=== PATIENT | female | born 1960 | race Caucasian/White ===

== ENCOUNTER → 2017-05-10 15:45 | Outpatient (POV) | payer BC, SELFPAY | PROVIDERS: PCP Internal Medicine Adolescent Medicine; Visit Provider Internal Medicine Adolescent Medicine | DX: Z00.00 Encounter for general adult medical examination without abnormal findings (principal) ==

== ENCOUNTER → 2017-05-24 15:29 | Outpatient (POV) | payer BC, SELFPAY | PROVIDERS: PCP Internal Medicine Adolescent Medicine; Visit Provider Internal Medicine Adolescent Medicine | DX: Z00.00 Encounter for general adult medical examination without abnormal findings (principal) ==

== ENCOUNTER → 2017-07-05 16:42 | Outpatient (POV) | payer BC, SELFPAY | PROVIDERS: PCP Internal Medicine Adolescent Medicine | DX: Z00.00 Encounter for general adult medical examination without abnormal findings (principal) ==

== ENCOUNTER → 2017-11-22 16:13 | Outpatient (CLI) | payer BC, SELFPAY ==
--- NOTE | 2017-11-22 16:43 | XR_ITS ---
XR chest 2V HISTORY: Hypertension ITS.REASON: PRE-OP ORDERING PHYSICIAN: Alistair Landis MD PATIENT AGE: 57 years COMPARISON: None FINDINGS: The cardiomediastinal silhouette and pulmonary vascularity are within normal limits. The lungs are clear without infiltrates, suspicious nodules, or pleural effusions. No acute bony abnormalities. There is mild lower thoracic curvature convex left IMPRESSION: No acute finding
[2017-11-22 16:46] LABS: Basophils % 0.1 % (0.1-2.0); Eosinophils # 0.1 K/mm3 (0.0-0.4); Hematocrit 37.5 % (37.0-47.0); Lymphocytes # 1.3 K/mm3 (0.7-4.5); Lymphocytes % 27.2 K/mm3 (10-50); Mean Corpuscular HGB Conc 32.1 g/dL (31.8-35.4); Mean Corpuscular Hemoglobin 30.5 pg (27.0-31.2); Mean Corpuscular Volume 95.1 fl (81-99); Mean Platelet Volume 8.3 fl (7.4-10.4); Monocytes # 0.2 K/mm3 (0.1-1.0); Monocytes % 4.8 % (1.7-9.3); Neutrophils # 3.2 K/mm3 (1.8-7.8); Neutrophils % 66.8 % (37.0-80.0); Platelet Count 268 K/mm3 (142-424); Red Blood Count 3.94 M/mm3 (4.20-5.40); Red Cell Distribution Width 13.2 % (11.5-17.5); White Blood Count 4.7 K/mm3 (4.8-10.8)
[2017-11-22 19:59] LABS: Anion Gap 7.8 mEq/L (5-15); Blood Urea Nitrogen 8 mg/dL (7-18); Calcium 8.9 mg/dL (8.5-10.1); Carbon Dioxide 28 mmol/L (21.0-32.0); Chloride 105 mmol/L (98-107); Creatinine,Serum 0.71 mg/dL (0.55-1.02); Estimated Glomerular Filt Rate 85 ml/min (>60); GFR (African American) 103 ML/MIN (>60); Glucose 84 mg/dL (74-106); Potassium 3.8 mmoL/L (3.5-5.1); Sodium 137 mmol/L (136-145)
== END ==
PROVIDERS: PCP Internal Medicine Adolescent Medicine; Visit Provider Orthopaedic Surgery
DX: Z01.818 Encounter for other preprocedural examination (principal)
CPT/HCPCS: 36415; 71046; 80048; 85025; 93005

== ENCOUNTER → 2017-12-04 15:22 | Outpatient (CLI) | payer BC, SELFPAY ==
--- NOTE | 2017-12-04 15:24 | XR_ITS ---
XR wrist LT min 3V HISTORY follow-up ORIF/fracture ITS.REASON: sp orif lt wrist/ xrays in cast ORDERING PHYSICIAN: Alistair Landis MD PATIENT AGE: 57 years Comparison:11/24/2017 FINDINGS: The study is obtained through a cast. There is an anterior bone plate once again noted with multiple screws stabilizing a distal radial fracture which is in good alignment. Fracture lines are no well delineated due to overlying cast. IMPRESSION: Good alignment distal radial fracture status post ORIF
== END ==
PROVIDERS: PCP Internal Medicine Adolescent Medicine; Visit Provider Orthopaedic Surgery
DX: S52.502A Unspecified fracture of the lower end of left radius, initial encounter for closed fracture (principal); Z48.89 Encounter for other specified surgical aftercare
CPT/HCPCS: 73110

== ENCOUNTER → 2017-12-19 15:04 | Outpatient (CLI) | payer BC, SELFPAY ==
--- NOTE | 2017-12-19 15:07 | XR_ITS ---
XR wrist LT min 3V HISTORY follow-up fracture/ORIF ITS.REASON: left wrist/ after cast was removed ORDERING PHYSICIAN: Alistair Landis MD PATIENT AGE: 57 years Comparison: 12/04/2017 FINDINGS: There is good alignment with the anterior bone plate present overlying the distal radius stabilizing the healing fracture of the distal radius. IMPRESSION: Healing fracture distal radius with good alignment status post ORIF
== END ==
PROVIDERS: PCP Internal Medicine Adolescent Medicine; Visit Provider Orthopaedic Surgery
DX: S52.502A Unspecified fracture of the lower end of left radius, initial encounter for closed fracture (principal)
CPT/HCPCS: 73110

== ENCOUNTER → 2018-01-12 12:02 | Outpatient (CLI) | payer BC, SELFPAY ==
--- NOTE | 2018-01-12 12:05 | XR_ITS ---
XR wrist LT min 3V HISTORY follow-up fracture/ORIF ITS.REASON: SP ORIF left wrist ORDERING PHYSICIAN: Alistair Landis MD PATIENT AGE: 57 years Comparison: 12/19/2017 FINDINGS: There remains good alignment in the distal radial fracture with bone plate placed anteriorly fracture line still visible involving the distal radius IMPRESSION: Overall no change. Alignment status post ORIF distal radial fracture
== END ==
PROVIDERS: PCP Internal Medicine Adolescent Medicine; Visit Provider Orthopaedic Surgery
DX: S52.502A Unspecified fracture of the lower end of left radius, initial encounter for closed fracture (principal); Z09 Encounter for follow-up examination after completed treatment for conditions other than malignant neoplasm
CPT/HCPCS: 73110

== ENCOUNTER 2018-02-22 14:00 | Outpatient (RCR) | payer BC, SELFPAY ==
--- NOTE | 2017-12-27 15:51 | HMH.OTOPEV ---
OT Inpatient Evaluation Rehab OT Outpatient Eval Start: 12/27/17 15:37 Freq: Status: Active Protocol: Document 12/27/17 15:38 RMARSHALL (Rec: 12/27/17 15:51 [facility] [id number]) Electronically Signed By Mima Sneed OT 12/27/17 15:38 Outpatient Therapy Subjective History Subjective History Pt reports to therapy session for initial evaluation to left wrist. Pt reports she fell out of her truck on 11/20/17 and caught herself with her left hand. Pt's fall resulted in a distal radius fracture at left wrist and an ORIF on . Pt is currently wearing a pre-twin removable wrist cock up on left hand with a sling. 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 Pt is able to make a full fist with left hand and oppose each finger to thumb. Pt will continue to be seen in order to address all deficits. Chief Complaint Pain Stiff Swelling Weakness Decreased General Counselor Strength Symptom Type Ache Sharp Symptoms Relieved By Rest/Positioning Symptoms Aggravated By Physical Activity Lifting Prior Functional Limitations None Current Functional Limitations Lifting Housework Dressing Symptom Description Intermittent Activity Dependent Level of pain today (0-10) 0 Pain scale - at its best (0-10) 0 Pain scale - at its worst (0-10) 3 Wrist/Hand Eval Wrist Range of Motion Wrist Limitations of Range of Motion Soft Tissue Tightness Muscle Weakness Pain Wrist Extension Active Range of Motion ( 22 degrees degrees) Wrist Flexion Active Range of Motion ( 20 degrees degrees) Wrist Radial Deviation Active Range of 28 degrees Motion (degrees) Wrist Ulnar Deviation Active Range of 20 degrees Motion (degrees)
== END 2018-02-22 14:05 | disposition home or self-care (01) ==
LOC: OT 14:00
PROVIDERS: Visit Provider Orthopaedic Surgery
DX: S52.572A Other intraarticular fracture of lower end of left radius, initial encounter for closed fracture (principal)
CPT/HCPCS: 97014; 97035; 97110; 97140; 97165; G0283

== ENCOUNTER → 2018-02-23 10:08 | Outpatient (CLI) | payer BC, SELFPAY ==
--- NOTE | 2018-02-23 10:10 | XR_ITS ---
XR wrist LT min 3V HISTORY: Follow-up fracture ITS.REASON: sp ORIF lt wrist DOS 11/24/17 ORDERING PHYSICIAN: Alistair Landis MD PATIENT AGE: 57 years COMPARISON: Left wrist 01/12/2018 FINDINGS: The metallic bone plate is again seen along the volar surface of the distal radius transfixing the distal radial fracture in anatomic alignment and fixated by multiple threaded screws. The fracture line is somewhat blurred on today's study representing progressive interval healing from the previous study. The distal ulna is intact.. The carpal bones appear normal to monitor posterior 3 change at the first carpometacarpal joint. IMPRESSION: Post-ORIF fracture distal radius with slight interval healing from the previous study
== END ==
PROVIDERS: PCP Internal Medicine Adolescent Medicine; Visit Provider Orthopaedic Surgery
DX: Z09 Encounter for follow-up examination after completed treatment for conditions other than malignant neoplasm (principal); S52.502A Unspecified fracture of the lower end of left radius, initial encounter for closed fracture
CPT/HCPCS: 73110

== ENCOUNTER → 2018-03-02 15:33 | Outpatient (CLI) | payer BC, SELFPAY ==
--- NOTE | 2018-03-02 15:38 | XR_ITS ---
XR DEXA axial skeleton HISTORY: ITS.REASON: osteoporosis ORDERING PHYSICIAN: Alistair Landis MD PATIENT AGE: 57 years COMPARISON: None FINDINGS: The BMD measured at the left femoral neck is 0.844 g/cm squared with a T score of -1.4. This is considered Osteopenic according to the World Health Organization criteria. Fracture risk is Moderate. Treatment is advised. Bone density lumbar spine has a T score -0.6 IMPRESSION: Osteopenia with moderate fracture risk. Treatment is advised Suggest follow-up exam February 2020
== END ==
PROVIDERS: PCP Internal Medicine Adolescent Medicine; Visit Provider Orthopaedic Surgery
DX: M81.0 Age-related osteoporosis without current pathological fracture (principal)
CPT/HCPCS: 77080

== ENCOUNTER → 2020-09-23 12:09 | Outpatient (CLI) | payer BC, SELFPAY ==
--- NOTE | 2020-09-23 12:14 | XR_ITS ---
PROCEDURE: XR ANKLE RT MIN 3V CLINICAL INDICATION: ACUTE RT ANKLE PAIN COMPARISON: No exams were available for comparison FINDINGS: No fracture or dislocation. No lytic or blastic change. There is normal mineralization. The joint spaces are well-preserved. No significant degenerative/arthritic changes. No erosive changes evident. Other findings:Small bone island noted in the calcaneus anteriorly versus overlying ossicle IMPRESSION: No acute findings. Dictated by: Yousif Pickett MD 09/23/2020 12:52 Yousif Pickett MD in [place] 09/23/2020 12:52
== END ==
PROVIDERS: PCP Internal Medicine Adolescent Medicine; Visit Provider Internal Medicine Adolescent Medicine
DX: M25.571 Pain in right ankle and joints of right foot (principal)
CPT/HCPCS: 73610

== ENCOUNTER → 2021-11-15 16:10 | Outpatient (CLI) | payer OTHER, SELFPAY ==
--- NOTE | 2021-11-15 16:14 | XR_ITS ---
PROCEDURE INFORMATION: Exam: XR Left Knee Exam date and time: 11/15/2021 4:19 PM Age: 61 years old Clinical indication: Pain; Knee; Left; Additional info: Acute pain of left knee TECHNIQUE: Imaging protocol: Radiologic exam of the Left knee. Views: 3 views. COMPARISON: No relevant prior studies available. FINDINGS: Bones/joints: No acute fracture or malalignment. Moderate medial and mild lateral and patellofemoral compartment degenerative changes. No joint effusion. Patellar enthesopathy. Osteopenia. Soft tissues: Normal. IMPRESSION: 1. No acute fracture or malalignment. 2. Moderate medial compartment degenerative changes.
== END ==
PROVIDERS: PCP Internal Medicine Adolescent Medicine; Visit Provider Internal Medicine Adolescent Medicine
DX: M25.562 Pain in left knee (principal)
CPT/HCPCS: 73562

== ENCOUNTER 2021-12-21 16:30 | Outpatient (RCR) | payer OTHER, SELFPAY ==
--- NOTE | 2021-11-18 17:57 | HMH.PTOPEV ---
PT Outpatient Evaluation Rehab PT Outpatient Evaluation Start: 11/18/21 17:45 Freq: Status: Active Protocol: Document 11/18/21 17:45 SANTHOSH (Rec: 11/18/21 17:57 SANTHOSH [id number]) E-signed By Chriss Longo, PT Outpatient Therapy Subjective History Subjective History Patient is a 61 year old female presenting to outpatient PT with reports of L knee pain 10/07/21. Initial injury occurred aftera a slip and fall at work. This is a WC case. Injury occurred during the fall with the L knee in CKC and bending/ twisting motion. S&S consistent with medial meniscus tear. Comorbidities include hx of L wrist fracture . Chief Complaint Pain,Stiff,Swelling,Weakness Symptom Type Ache,Throb,Sharp,Dull Symptoms Relieved By Rest/Positioning,OTC Meds Symptoms Aggravated By Standing,Physical Activity, Walking Prior Functional Limitations None Current Functional Limitations Housework,Standing,Recreation Activity,Walking,Stairs Symptom Description Constant but Variable Level of pain today (0-10) 5 Pain scale - at its best (0-10) 2 Pain scale - at its worst (0-10) 7 Hip/Knee Eval Gait Observation General Gait Pattern Observation Antalgic Gait,Decrease Weight Bear (L) Assistive Device Assistive Devices None / NA Palpation Tenderness left Knee Palpation Finding Tenderness Knee Palpation Overall Comment medial joint line 3/4 MMT Hip Flexion Strength Grade 5 Normal Hip Abduction Strength Grade 5 Normal Hip Adduction Strength Grade 5 Normal Hip Extension Strength Grade 4 Good Hip External Rotation Strength Grade 4- Good- Hip Internal Rotation Strength Grade 4- Good- Knee Extension Strength Grade 4 Good Knee Flexion Strength Grade 5 Normal ROM Hip ROM Reason Not Measured Within Functional Limits Knee ROM Reason Not Measured Within Functional Limits Special Tests Knee Anterior Drawer Test Negative Left Knee Anterior Alli Test Negative Left Knee Valgus Stress Test Negative Left Knee Varus Stress Test Negative Left Knee Brody Test Positive Right Outpatient Therapy Assessment Impairments Problems/Impairmments Palpation Tenderness,Impaired Range of Motion,Impaired Strength
== END 2021-12-21 16:35 | disposition home or self-care (01) ==
LOC: PT 16:30
PROVIDERS: Visit Provider Internal Medicine Adolescent Medicine
DX: M25.562 Pain in left knee (principal)
CPT/HCPCS: 97010; 97014; 97033; 97035; 97110; 97163; G0283

== ENCOUNTER → 2022-12-24 09:11 | Outpatient (CLI) | payer BC, SELFPAY ==
[2022-12-24 10:43] LABS: Alanine Aminotransferase 16 U/L (12-78); Albumin Level 4.4 g/dl (3.5-5.0); Albumin/Globulin Ratio 1.8 (1.1-1.8); Alkaline Phosphatase 70 U/L (38-126); Anion Gap 12.5 mEq/L (5-15); Aspartate Amino Transferase 24 U/L (14-36); Bilirubin,Total 0.4 mg/dl (0.2-1.3); Blood Urea Nitrogen 16 mg/dl (7-17); Calcium 9.4 mg/dl (8.4-10.2); Carbon Dioxide 30 mmol/L (22.0-30.0); Chloride 103 mmol/L (98-107); Chol/HDL Ratio 3.1 (1-3.5); Cholesterol 156 mg/dl (140-200); Estimated Glomerular Filt Rate 85 ml/min (>60); GFR (African American) 103 ML/MIN (>60); Globulin 2.5 g/dL (1.3-3.2); Glucose 84 mg/dl (74-100); HDL Cholesterol 50 mg/dl (40-60); Potassium 4.5 mmoL/L (3.5-5.1); Sodium 141 mmol/L (136-145); Total Protein,Serum 6.9 g/dl (6.3-8.2); Triglycerides 101 mg/dl (30-150); VLDL Cholesterol 20 mg/dL (0-40)
[2022-12-24 10:54] LABS: Direct LDL Cholesterol 78.93 mg/dL (100-129)
== END ==
PROVIDERS: PCP Nurse Practitioner Family; Visit Provider Nurse Practitioner Family
DX: Z00.00 Encounter for general adult medical examination without abnormal findings (principal)
CPT/HCPCS: 36415; 80053; 80061

== ENCOUNTER 2024-10-12 10:24 | Outpatient (CLI) | payer BC, SELFPAY ==
--- OUTSIDE RECORDS SUMMARY | 2024-10-12 10:28 | XMS_ITS | Encounter Summary ---
Author Organization [employer] ([place], [place], [place], [place]) Address [address] [place] [address] Care Team Providers Care Prosthodontist Name Role Phone David Bang MD Primary Care Provider [phone] Encounter Details Date Type Department Care Team (Late st Contact Info) Description 03/02/2023 Outside Orders [facility] Central Scheduling [address] [place] [address] Isaac Manley MD [address] [facility] [address] [place] [address] Social History Tobacco Use Types Packs/Day Years Used Date Smoking Tobacco: Never Assessed Family and Community Support Answer Narayan e Recorded Help with Day to Day Activities Not on file 03/17/2023 Feeling Lonely or Isolated Not on file 03/17 Educational Attainment Answer Date Kwan rded Speak language other than Kazakh at home Not on file 03/17/2023 Want help with school or training Not on file 03/17/2023 Substance Use Answer Date Recorded Used prescription meds for non-medical reasons N ot on file 03/17/2023 Used illegal drugs past 12 months Not on file 03/17/2023 Comments Unknown Sex and Gender Information Value Date Recorded Sex Assigned at Female 08/24/2021 5:37 PM CDT Legal Sex Female 5:37 PM CDT Gender Identity Female 08/24/2021 5:37 PM CDT Sexual Orientation Not on file documented as of this encounter Plan of Treatment Upcoming Encounters Date Type Department Care Team (Late st Contact Info) Description 06/24/2025 7:45 AM EDT Appointment [address] [place] [address] documented as of this encounter Visit Diagnoses Not on filedocumented in this encounter Care Teams Prosthodontist Relationship Specialty Start Date End Date David Bang MD [address] [place] [address] PCP - General Adolescent Medicine 06/02/22 documented as of this encounter
--- OUTSIDE RECORDS SUMMARY | 2024-10-12 10:28 | XMS_ITS | Encounter Summary ---
Author Organization [employer] ([place], [place], [place], [place]) Address [address] [place] [address] Care Team Providers Care Sorter Lumber Straightener Name Role Phone David Bang MD Primary Care Provider [phone] Reason for Referral * Mammography (Routine) - Closed Specialty Diagnoses / Procedures Referred By Contac t Referred To Contact Diagnoses Visit for screening mammogram Procedures MM digital mammo screen with arnoldo bilateral David Bang MD [address] [place] [address] Phone: tel: fax: Referral ID Status Reason Start Date Expiration Date Visits Re quested Visits Authorized [id number] Closed 03/02/2023 08/29/2023 1 1 Encounter Details Date Type Department Care Team (Late st Contact Info) Description 03/02/2023 Outside Orders [facility] Central Scheduling [address] [place] [address] David Bang MD [address] [place] [address] Visit for screening mammogram (Primary Dx) Social History Tobacco Use Types Packs/Day Years Used Date Smoking Tobacco: Never Assessed Family and Community Support Answer Narayan e Recorded Help with Day to Day Activities Not on file 03/17/2023 Feeling Lonely or Isolated Not on file 03/17 Educational Attainment Answer Date Kwan rded Speak language other than Latvian at home Not on file 03/17/2023 Want [...] Info) Description 06/24/2025 7:45 AM EDT Appointment [address] [address] documented as of this encounter Results * MM digital mammo screen with arnoldo bilateral (06/08/2023 2:24 PM EDT) Anatomical Region Laterality Modality Breast Bilateral Mammography 06/08/2023 5:4 1 PM EDT Impressions 06/08/2023 5:43 PM EDT FINAL IMPRESSION: ACR BI-RADS 1: Negative. RECOMMENDATIONS: Routine annual screening mammography. A letter including results and recommendations was sent to the patient. Density notification was provided to patients with type 3 or 4 breast tissue pattern. Patient information entered into a reminder system with a target due date for the next mammogram. At our facility, a [place] marker is positioned over a visible skin lesion and a linear marker is used to indicate a scar. A triangular marker is placed on a self reported palpable finding. Note: Mammography does not detect approximately 10-15% of breast cancers. An annual clinical breast exam by the patient's breast care physician and regular monthly self breast exams by the patient are integral parts of breast cancer screening, in addition to annual mammography. A normal mammogram does not completely exclude the presence of breast cancer, especially if there is an abnormal finding on physical exam. When clinically indicated, a biopsy should not be deferred because of a normal mammogram report. cc: Narrative 06/08/2023 5:43 PM EDT PROCEDURE: Bilateral digital screening mammogram with tomosynthesis. REASON FOR EXAM: Routine screening. FAMILY HISTORY: There is weak family history of breast cancer. COMPARISON STUDY: [facility] FINDINGS: Craniocaudal and mediolateral oblique images of both breasts were obtained in 2D, C-view, and 3D modes. The breast tissue has pattern b (scattered fibroglandular densities). There has been no change. There is no evidence of dominant mass, architectural distortion, or suspicious calcifications. This examination was reviewed with the benefit of computer-aided detection (CAD). us David Bang MD IMG MAMMOGRAPHY ORDERABLES F inal Result documented in this encounter Visit Diagnoses Diagnosis Visit for screening mammogram- Primary Visit for screening mammogram documented in this encounter Care Teams Sorter Lumber Straightener Relationship Specialty Start Date End Date David Bang MD [address] [place] [address] PCP - General Adolescent Medicine 06/02/22 documented as of this encounter
--- OUTSIDE RECORDS SUMMARY | 2024-10-12 10:28 | XMS_ITS | Referral Summary ---
Author Organization [employer] ([place], [place], [place], [place]) Address [address] [place] [address] Care Team Providers Care Chief Meter Reader Name Role Phone David Bang MD Primary Care Provider [phone] Social History Tobacco Use Types Packs/Day Years Used Date Smoking Tobacco: Never Assessed Family and Community Support Answer Narayan e Recorded Help with Day to Day Activities Not on file 03/17/2023 Feeling Lonely or Isolated Not on file 03/17 Educational Attainment Answer Date Kwan rded Speak language other than Trinidadian at home Not on file 03/17/2023 Want [...] PM CDT Sexual Orientation Not on file Plan of Treatment Upcoming Encounters Date Type Department Care Team (Late st Contact Info) Description 06/24/2025 7:45 AM EDT Appointment [address] [address] Procedures Procedure Name Priority Date/Time Associated Diagnosis Comments MM DIGITAL MAMMO SCREEN WITH KINZA BILATERAL Routine 06/19/2024 8:17 AM EDT Visit for screening mammogram from Last 3 Months or Most Recently Relevant to Health Maintenance Results * MM digital mammo screen with kinza bilateral (06/19/2024 8:17 AM EDT) Anatomical Region Laterality Modality Breast Bilateral Mammography 06/19/2024 3:00 PM EDT Impressions 06/19/2024 3:06 PM EDT No mammographic evidence of malignancy. BI-RADS CATEGORY: 2 , BENIGN FINDING(S). RECOMMENDED FOLLOW-UP: Annual mammography. A letter including results and recommendations was sent to the patient. Density notification was included for patients with pattern 3 or 4 breast tissue. Patient information was entered into a reminder system with a target due date for the next mammogram. NOTES: Mammography does not detect approximately 10-15% of breast cancers. Physical examination of the breasts by a physician and regular monthly breast self examinations are integral parts of breast cancer screening. A normal mammogram does not exclude breast cancer if there is an abnormal finding on physical examination. When clinically indicated, a biopsy should not be postponed because of a normal mammogram report. Narrative 06/19/2024 3:06 PM EDT BILATERAL SCREENING DIGITAL MAMMOGRAPHY CLINICAL INDICATION: Routine screening. TECHNIQUE: Bilateral CC and MLO views were obtained with digital acquisitions with 3D tomosynthesis. The study was read with the assistance of CAD. COMPARISON: Exams dating back to 2020. DENSITY: There are scattered areas of fibroglandular density. FINDINGS: There are no spiculated masses, areas of distortion or suspicious calcifications. Small areas of focal asymmetry in the lateral right breast on the CC view are stable. David Bang MD [facility] [place] MAMMOGRAPHY ORDERABLES F inal Result from Last 3 Months or Most Recently Relevant to Health Maintenance Insurance [id number] [place] [id number] BLUE CROSS/BLUE SHIELD Care Teams Chief Meter Reader Relationship Specialty Start Date End Date David Bang MD [address] [place] [address] PCP - General Adolescent Medicine 06/02/22
--- OUTSIDE RECORDS SUMMARY | 2024-10-12 10:28 | XMS_ITS | Encounter Summary ---
Author Organization [employer] ([place], [place], [place], [place]) Address [address] [place] [address] Care Team Providers Care Silvering Applicator Name Role Phone David Bang MD Primary Care Provider [phone] Reason for Referral * Mammography (Routine) - Closed Specialty Diagnoses / Procedures Referred By Contac t Referred To Contact Diagnoses Encounter for screening mammogram for malignant neoplasm of breast Procedures MM digital mammo screen with arnoldo bilateral David Bang MD [address] [place] [address] Phone: tel: fax: Referral ID Status Reason Start Date Expiration Date Visits Re quested Visits Authorized [id number] Closed 04/29/2022 10/26/2022 1 1 Encounter Details Date Type Department Care Team (Late st Contact Info) Description 04/29/2022 Outside Orders [facility] Central Scheduling [address] [place] [address] David Bang MD [address] [place] [address] Encounter for screening mammogram for malignant neoplasm of breast (Primary Dx) Social History Tobacco Use Types Packs/Day Years Used Date Smoking Tobacco: Never Assessed Comments Unknown Sex and Gender Information Value Date Recorded Sex Assigned at Female 08/24/2021 5:37 PM CDT Legal Sex Female 5:37 PM CDT Gender Identity Female 08/24/2021 5:37 PM CDT Sexual Orientation Not on file documented as of this encounter Plan of Treatment Upcoming Encounters Date Type Department Care Team (Late st Contact Info) Description 06/24/2025 7:45 AM EDT Appointment [facility] [place] [address] [facility] [address] [place] [address] documented as of this encounter Results * MM digital mammo screen with arnoldo bilateral (06/02/2022 10:53 AM EDT) Anatomical Region Laterality Modality Breast Bilateral Mammography 06/02/2022 12:0 5 PM EDT Impressions 06/02/2022 12:34 PM EDT FINAL IMPRESSION: ACR BI-RADS 1: Negative. RECOMMENDATIONS: Routine annual screening mammography. A letter including results and recommendations was sent to the patient. Density notification was provided to patients with type 3 or 4 breast tissue pattern. Patient information entered into a reminder system with a target due date for the next mammogram. At our facility, a [place] marker is positioned over a visible skin [...] of a normal mammogram report. cc: Narrative 06/02/2022 12:34 PM EDT PROCEDURE: Bilateral digital screening mammogram with tomosynthesis. REASON FOR EXAM: Routine screening. FAMILY HISTORY: No family history of breast cancer. COMPARISON STUDY: [facility] FINDINGS: Craniocaudal and mediolateral oblique images of both breasts were obtained in 2D, C-view, and 3D modes. There are scattered areas of fibroglandular density. There is no evidence of dominant mass, architectural distortion, or suspicious calcifications. No significant interval change. This examination was reviewed with the benefit of computer-aided detection (CAD). us David Bang MD IMG MAMMOGRAPHY ORDERABLES F inal Result documented in this encounter Visit Diagnoses Diagnosis Encounter for screening mammogram for malignant neoplasm of breast- Primary Encounter for screening mammogram for malignant neoplasm of breast documented in this encounter Care Teams Silvering Applicator Relationship Specialty Start Date End Date David Bang MD [address] [place] [address] PCP - General Adolescent Medicine 06/02/22 documented as of this encounter
--- OUTSIDE RECORDS SUMMARY | 2024-10-12 10:28 | XMS_ITS | Clinical Summary ---
Author Organization [employer] ([place], [place], [place], [place]) Address [address] [place] [address] Care Team Providers Care Coordinator Hotels Name Role Phone David Bang MD Primary Care Provider [phone] Family History Medical History Relation Name Comments Breast cancer Maternal Aunt Relation Name Status Comments Maternal Aunt Alive Social History Tobacco Use Types Packs/Day Years Used Date Smoking Tobacco: Never Assessed Family and Community Support Answer Narayan e Recorded Help with Day to Day Activities Not on file 03/17/2023 Feeling Lonely or Isolated Not on file 03/17 Educational Attainment Answer Date Kwan rded Speak language other than Canadian at home Not on file 03/17/2023 Want [...] Info) Description 06/24/2025 7:45 AM EDT Appointment [address] [address] Health Maintenance Due Date Last Done Comments CT Colonography 1962 Colonoscopy 1962 Colorectal Cancer Screening 1962 FOBT/FIT 1962 Fit-DNA (Cologuard) 1962 Sigmoidoscopy 1962 Depression Screening (12+) 1974 Tobacco Cessation Counseling and Screening (12+) 1974 HIV Screening 1977 Hepatitis C Screening 1980 DTAP/TDAP/TD VACCINES (1 - Tdap) 1981 Pap Smear 11/08/1983 Lipid Panel 11/08/2007 Pneumococcal 50+ years (1 of 1 - PCV) 2012 Shingles Vaccine (Zoster) (1 of 2) 2012 COVID-19 VACCINE (3 - 2023-2 5 season) 2023 04/17/2020, 03/18/2020 Influenza Vaccine (#1) 2024 Breast Cancer Screening 06/19/2026 06/20/19 25, 06/08/2023, 06/02/2022, Additional history exists Respiratory Syncytial Virus (RSV) Adult or (1 - 1-dose 75+ series) 2037 Procedures Procedure Name Priority Date/Time Associated Diagnosis [...] breast on the CC view are stable. us David Bang MD IMG MAMMOGRAPHY ORDERABLES F inal Result from Last 3 Months or Most Recently Relevant to Health Maintenance Insurance BLUE CROSS/BLUE SHIELD Care Teams Coordinator Hotels Relationship Specialty Start Date End Date David Bang MD [address] [place] [address] PCP - General Adolescent Medicine 06/02/22
--- OUTSIDE RECORDS SUMMARY | 2024-10-12 10:28 | XMS_ITS | Clinical Summary ---
Author Organization [facility] Address [address] [place] [address] Care Team Providers Care Jewel Grinder Name Role Phone David Bang MD Primary Care Provider [phone] Allergies No known active allergies Medications multivitamin (DAILY SYLVIA) tablet tablet Take 1 tablet by mouth Daily. Active celecoxib (CeleBREX) 200 MG capsule TAKE 1 CAPSULE BY MOUTH ONCE DAILY . APPOINTMENT REQUIRED FOR FUTURE REFILLS 2 Active Active Problems No known active problems Family History Medical History Relation Name Comments Throat cancer Father Breast cancer Maternal Aunt Multiple sclerosis Mother Relation Name Status Comments Father Maternal Aunt Mother Alive Social History Tobacco Use Types Packs/Day Years Used Date Smoking Tobacco: Never Smokeless Tobacco: Never Tobacco Cessation:Counseling Given: Not Answered Alcohol Use Standard Drinks/Week Comments Yes 0 (1 standard drink = 0.6 oz pur e alcohol) occas Abuse Screen Answer Date Recorded Unsafe at Home or Work/School Not on file Feels Threatened by Someone? Not on file 10/2022 Does Anyone Keep You from Co ntacting Others or Doint Things Outside the Home? Not on file 12/05/2022 Physical Sign of Abuse Present Not on file 1 Housing Stability Answer Date Recorded Current Living Arrangements Not on file 10/2022 Potentially Unsafe Housing Conditions Not on clifford e 12/05/2022 Family and Community Support Answer Narayan e Recorded Help with Day-to-Day Activities Not on file 12/05/2022 Lonely or Isolated Not on file 12/05/2022 Employment Answer Date Recorded Do you want help finding or keeping work or a chase b? Not on file 12/05/2022 Disabilities Answer Date Recorded Concentrating, Remembering, or Making Decisions Difficulty Not on file 12/05/2022 Doing Errands Independently Difficulty Not on fi le 12/05/2022 Education Answer Date Recorded Help with school or training? Not on file Preferred Language Not on file 12/05/2022 Comments No Sex and Gender Information Value Date Recorded Sex Assigned at Not on file Legal Sex Female 10:29 AM EDT Gender Identity Not on file Sexual Orientation Not on file Last Filed Vital Signs Vital Sign Reading Time Taken Comments Blood Pressure 120/70 04/17/2023 11:26 AM EST Pulse - - Temperature - - Respiratory Rate 20 04/17/2023 11:26 AM EST Oxygen Saturation - - Inhaled Oxygen Concentration - - Weight 64.7 kg (142 lb 9.6 oz) 04/17/2023 11:26 AM EST Height 162.6 cm (5' 4.02 ) 04/17/2023 11:[address] Body Mass Index 24.47 04/17/2023 11:26 AM EST Plan of Treatment Health Maintenance Due Date Last Done Comments TDAP/TD VACCINES (1 - Tdap) 1981 COLON CANCER SCREENING 5 YEA R SIGMOIDOSCOPY 11/08/2007 COLONOSCOPY 11/08/2007 CT COLONOGRAPHY 11/08/2007 FECAL OCCULT BLOOD TEST 11/08/2007 FIT Testing (1 year) 11/08/2007 Pneumococcal Vaccine 50+ (1 of 1 - PCV) 2012 ZOSTER VACCINE (1 of 2) 2012 ANNUAL PHYSICAL 01/13/2016 HEPATITIS C SCREENING 01/13/2016 COVID-19 Vaccine (3 - 2023-2 5 season) 2023 04/17/2020, 03/18/2020 Annual Gynecologic Pelvic an d Breast Exam 04/18/2024 04/17/2023 MAMMOGRAM 06/02/2024 06/02/2022, 04/0 05/2021, 05/31/2021, Additional history exists INFLUENZA VACCINE 11/27/2024 COLOGUARD 06/07/2026 06/08/2023 COLORECTAL CANCER SCREENING 06/07/2026 Procedures Procedure Name Priority Date/Time Associated Diagnosis Comments COLOGUARD Routine 06/08/2023 6:30 AM EDT Screen for colon cancer SCANNED - MAMMO 05/31/2021 from Last 3 Months or Most Recently Relevant to Health Maintenance Results * Cologuard - Stool, Per Rectum (06/08/2023 6:30 AM EDT) Cologuard Negative Negative 06/15/2023 8:36 PM EDT [facility] (CLIA #:[id number]) Comment: NEGATIVE TEST RESULT. A negative Cologuard result indicates a low likelihood that a colorectal cancer (CRC) or advanced adenoma (adenomatous polyps with more advanced pre-malignant features) is present. The chance that a person with a negative Cologuard test has a colorectal cancer is less than 1 in 1500 (negative predictive value >99.9%) or has an advanced adenoma is less than 5.3% (negative predictive value 94.7%). These data are based on a prospective cross-sectional study of 10,000 individuals at average risk for colorectal cancer who were screened with both Cologuard and colonoscopy. (Jacy Long al, N Engl J Med 2014;370(14):0435-3656) The normal value (reference range) for this assay is negative. COLOGUARD RE-SCREENING RECOMMENDATION: Periodic colorectal cancer screening is an important part of preventive healthcare for asymptomatic individuals at average risk for colorectal cancer. Following a negative Cologuard result, the [place] [employer] and U.S. Multi-Society Task Force screening guidelines recommend a Cologuard re-screening interval of 3 years. References: [employer] Guideline for Colorectal Cancer Screening: https://www.cancer.org/cancer/dropt-xafjmh-wwblgp/scmgnvbgy-yptwkyves-djldcbk/ac s-rec ommendations.html.; Cristian DK, Chris CR, Divina RodriguezK, Colorectal Cancer Screening: Recommendations for Physicians and Patients from the U.S. Multi-Society Task Force on Colorectal Cancer Screening , Am J Gastroenterology 2017; 112:6976-1809. TEST DESCRIPTION: Composite algorithmic analysis of stool DNA-biomarkers with hemoglobin immunoassay. Quantitative values of individual biomarkers are not reportable and are not associated with individual biomarker result reference ranges. Cologuard is intended for colorectal cancer screening of adults of either sex, 45 years or older, who are at average-risk for colorectal cancer (CRC). Cologuard has been approved for use by the U.S. FDA. The performance of Cologuard was established in a cross sectional study of average-risk adults aged 50-84. Cologuard performance in patients ages 45 to 49 years was estimated by sub-group analysis of near-age groups. Colonoscopies performed for a positive result may find as the most clinically significant lesion: colorectal cancer [4.0%], advanced adenoma (including sessile serrated polyps greater than or equal to 1cm diameter) [20%] or non- advanced adenoma [31%]; or no colorectal neoplasia [45%]. These estimates are derived from a prospective cross-sectional screening study of 10,000 individuals at average risk for colorectal cancer who were screened with both Cologuard and colonoscopy. (Jacy Long al, N Engl J Med 2014;370(14):8342-0501.) Cologuard may produce a false negative or false positive result (no colorectal cancer or precancerous polyp present at colonoscopy follow up). A negative Cologuard test result does not guarantee the absence of CRC or advanced adenoma (pre-cancer). The current Cologuard screening interval is every 3 years. ([employer] [employer] and U.S. Multi-Society Task Force). Cologuard performance data in a 10,000 patient pivotal study using colonoscopy as the reference method can be accessed at the following location: [email or web address]/results. Additional description of the Cologuard test process, warnings and precautions can be found at [email or web address].com. Stool specimen (specimen) Specimen from rectum / Unknown 06/08/2023 6:30 AM EDT 06/09/2023 9:08 AM EDT Zo Vee MD BODY FLUIDS AND STOOLS ORDERABLE S Final Result [facility] (CLIA #:[id number]) [address] [place] [address], * SCANNED - MAMMO (05/31/2021) Anatomical Region Laterality Modality Other Mateo Gill MD CHART REVIEW TABS Final Result from Last 3 Months or Most Recently Relevant to Health Maintenance Insurance [employer] Care Teams Jewel Grinder Relationship Specialty Start Date End Date David Bang MD [address] [facility] [address] [place] [address] PCP - General Adolescent Medicine 01/13/16
[2024-10-12 11:42] LABS: Chloride 102 mmol/L (98-107)
[2024-10-12 11:43] LABS: Albumin Level 4.6 g/dl (3.5-5.0); Potassium 4.4 mmoL/L (3.5-5.1); Sodium 137 mmol/L (136-145)
[2024-10-12 11:45] LABS: Blood Urea Nitrogen 12 mg/dl (7-17); Creatinine,Serum 0.70 mg/dl (0.52-1.04); Estimated Glomerular Filt Rate 85 ml/min (>60); GFR (African American) 103 ML/MIN (>60)
[2024-10-12 11:46] LABS: Alanine Aminotransferase 16 U/L (12-78); Albumin/Globulin Ratio 2.0 (1.1-1.8); Alkaline Phosphatase 70 U/L (38-126); Anion Gap 8.4 mEq/L (5-15); Aspartate Amino Transferase 23 U/L (14-36); Bilirubin,Total 0.5 mg/dl (0.2-1.3); Calcium 9.3 mg/dl (8.4-10.2); Carbon Dioxide 31 mmol/L (22.0-30.0); Globulin 2.3 g/dL (1.3-3.2); Glucose 79 mg/dl (74-100); Total Protein,Serum 6.9 g/dl (6.3-8.2)
== END 2024-10-12 23:59 | disposition home or self-care (01) ==
LOC: LAB 10:26
PROVIDERS: PCP Nurse Practitioner Family; Visit Provider Nurse Practitioner Family
DX: M17.12 Unilateral primary osteoarthritis, left knee (principal); Z51.81 Encounter for therapeutic drug level monitoring
CPT/HCPCS: 36415; 80053